=== PATIENT | male | born 1975 | race Two or more races ===

== ENCOUNTER 2023-05-21 07:37 | Emergency (ER) | payer BC, OTHER ==
[~2023-05-21] VITALS: Ht 172.7 cm; Wt 86.0 kg
[2023-05-21 08:58] VITALS: BP 147/87; PULSE 75; RESP 17; TEMP 98.2; O2SAT 96
[2023-05-21 09:04] LABS: COVID19 ANTIGEN SOFIA FIA NEGATIVE (NEGATIVE); Rapid Influenza A Negative (Negative); Rapid Influenza B Negative (Negative)
[2023-05-21] MEDS ORDERED: PROM1SOL4 PO (09:36)
[2023-05-21] MEDS ORDERED: BENZ100C97 PO (09:36)
== END 2023-05-21 10:05 | disposition home or self-care (01) ==
LOC: ER 07:37
DX: U07.1 COVID-19 (principal)
CPT/HCPCS: 36415; 87426; 87804